=== PATIENT | female | born 1995 | race Hispanic/Latino ===

== ENCOUNTER 2019-09-28 00:29 | Inpatient (IN) | payer OTHER ==
[2019-09-28 00:58] VITALS: BMI 31.8
[2019-09-28] MEDS ORDERED: hydrALAZINE 20 MG/ML VIAL SLOW IVP PRN ×2 (01:19→17:40)
[2019-09-28] MEDS ORDERED: Ondansetron PF 4 MG/2 ML Vial IVP PRN ×2 (01:19→09:06)
[2019-09-28] MEDS ORDERED: Lidocaine 1% (PF) 30 ML VIAL SC PRN (01:19)
[2019-09-28] MEDS ORDERED: HYDROcodone/Acetaminophen 5/325 mg Tablet PO PRN ×2 (01:19)
[2019-09-28] MEDS ORDERED: Ibuprofen 800 MG TAB PO PRN (01:19)
[2019-09-28] MEDS ORDERED: Lactated Ringer's 1,000 ML IV SCH (01:30)
[2019-09-28] MEDS: Lactated Ringer's 1,000 ML IV SCH ×3 (02:00→19:06)
[2019-09-28 02:14] LABS: Mean Corpuscular HGB CONC 35.6 g/dL (32.0-36.0); Mean Corpuscular Hemoglobin 31.8 pg (27.0-31.0); Mean Corpuscular Volume 89.5 fL (78.0-98.0); Mean Platelet Volume 8.3 fL (7.4-10.4); Platelet Count 193 thou/uL (130-400); RBC Distribution Width 12.6 % (11.5-14.5); Red Blood Cell (RBC) Count 4.09 mill/uL (4.20-5.40); White Blood Cell (WBC) Count 9.3 thou/uL (4.8-10.8)
[2019-09-28] MEDS: Butorphanol Tartrate 1 MG/ML VIAL SLOW IVP PRN ×2 (02:18→04:48)
[2019-09-28 02:41] LABS: HBSAg Index 0.15 S/CO (0-0.99); Hep B Surf Ag Non-Reactive S/CO (NonReactive)
[2019-09-28 05:33] LABS: Syphilis Antibody Nonreactive (Nonreactive); Syphilis Antibody Index 0.05 S/CO (<1.00 Non-Reactive)
[2019-09-28] MEDS ORDERED: Fentanyl 4 mcg/Bup 0.1% Cadd 100 ML ONE (07:40)
--- NOTE | 2019-09-28 07:46 | PDOC.LDHP ---
Labor and Delivery H&P Chief complaint: contractions HPI: 24 yo @ 39w1d by LMP c/w CRL who presents with c/o ctx, in active labor. Antepartum course benign. Current gestational age (weeks): 39 Due date: 10/04/19 Dating criteria: last menstrual period Grav: 2 Para: 1 OB History Details: Term FAVD due after pushing 2 hours. Current complications: none Abnormal US findings: No Current medications: pre- vitamins Previous surgical history: none Allergies/Adverse Reactions: Allergies Allergy/AdvReac Type Severity Reaction Status Date / Time No Known Allergies Allergy Verified 09/28/19 00:56 Social history: none - Physical Exam Vital signs reviewed and normal: yes General: NAD Heart: RRR Lungs: nonlabored breathing Abdomen: gravid Extremeties: no edema FHT: category 1 (130s, mod kym, +accels, no decels) [place] contractions every: q4-5 min - Vaginal Exam cm dilated: 8 (cepahlic ) Effacement: 90% Station: 1+ - OB Labs Blood type: O RH: positive Antibody Screen: negative HIV: negative RPR: negative HEPSAg: negative 1 hour GCT: negative GBS: negative Urine drug screen: negative Rubella: immune - Assessment L&D Assessment: term patient in labor - Plan Plan: admit to L&D, informed consent obtained, anesthesia consult for pain management -: Plan for AROM s/p epidural
[2019-09-28] MEDS ORDERED: Lactated Ringer's 500 ML IV PRN (09:06)
[2019-09-28] MEDS ORDERED: Naloxone HCl 0.4 mg/ml Vial IVP PRN ×2 (09:06)
[2019-09-28] MEDS ORDERED: Promethazine HCl 25 MG/ML VIAL IM PRN (09:06)
[2019-09-28] MEDS ORDERED: ePHEDrine/0.9% NaCl/PF SYRINGE 50 mg/10 ml SLOW IVP PRN (09:06)
[2019-09-28] MEDS ORDERED: Acetaminophen 325 MG TAB PO PRN (09:06)
[2019-09-28] MEDS ORDERED: diphenhydrAMINE 50 MG/ML VIAL IVP PRN (09:06)
[2019-09-28] MEDS ORDERED: Fentanyl 4 mcg/Bupivacaine 0.1% Cassette 100 ML EPIDURAL SCH (09:15)
[2019-09-28] MEDS ORDERED: Communication Order-Pharmacy FS PRN (09:15)
[2019-09-28] MEDS ORDERED: Lidocaine 2% MPF 10 ML AMP (For Epidural Use) ONE (15:18)
--- NOTE | 2019-09-28 15:30 | PDOC.OPDEL ---
OB Operative/Delivery Note Delivery Dr/Surgeon: Ana Cunningham DO Pre-Delivery Diagnosis: active labor Procedure/Post Delivery Dx: spontaneous vaginal delivery Weeks gestation: 39 Anesthesia: epidural - Findings A Sex: female - 1 min: 9 - 5 min: 9 - Additional Findings/Plan Placenta delivered: spontaneous Repaired Obstetrical Laceration: other (Right labial laceration !st degree) Estimated blood loss: QBL 180 cc Compilations/Other Findings: in EVA position Normal appearing placenta. Post delivery plan: routine recovery
[2019-09-28] MEDS: NS / Oxytocin 40 units/1000ml 1,000 ML IV PRN ×2 (15:41→17:00)
[2019-09-28] MEDS ORDERED: Preparation H Ointment 28 GM TUBE PR PRN (17:40)
[2019-09-28] MEDS ORDERED: diphenhydrAMINE 25 MG CAP PO PRN (17:40)
[2019-09-28] MEDS ORDERED: NS / Oxytocin 40 units/1000ml 1,000 ML IV SCH (17:40)
[2019-09-28] MEDS ORDERED: Lanolin Ointment 7 GM TUBE TOP PRN (17:40)
[2019-09-28] MEDS ORDERED: Benzocaine-Menthol 82.5 ML CAN TOP PRN (17:40)
[2019-09-28] MEDS ORDERED: Milk Of Magnesia 30 ML UDCUP PO PRN (17:40)
[2019-09-28] MEDS ORDERED: Bisacodyl 10 MG SUPP PR PRN (17:40)
[2019-09-28] MEDS ORDERED: Methylergonovine 0.2 MG/ML VIAL IM PRN (17:40)
[2019-09-28] MEDS ORDERED: Misoprostol 200 MCG TAB VAG PRN (17:40)
[2019-09-28] MEDS: HYDROcodone/Acetaminophen 5/325 mg Tablet PO PRN (19:23)
[2019-09-28] MEDS: Docusate Calcium (SURFAK) 240 MG CAP PO SCH (21:40)
[2019-09-28] MEDS: Ibuprofen 800 MG TAB PO SCH (21:40)
[2019-09-29 05:56] LABS: #Eosinphils 0.1 thou/uL (0.0-0.7); #Lymphocytes 2.5 thou/uL (1.20-3.40); #Monocytes 0.7 thou/uL (0.11-0.59); #Neutrophils 7.4 thou/uL (1.40-6.50); %Basophils 0.2 % (0.0-1.0); %Eosinophils 1.3 % (0.0-10.0); %Lymphocytes 23.7 % (21.0-51.0); %Monocytes 6.1 % (0.0-10.0); %Neutrophils 68.7 % (42.0-75.0); Hemoglobin 11.6 g/dL (12.0-16.0); Mean Corpuscular HGB CONC 33.7 g/dL (32.0-36.0); Mean Corpuscular Hemoglobin 30.5 pg (27.0-31.0); Mean Corpuscular Volume 90.4 fL (78.0-98.0); Mean Platelet Volume 8.2 fL (7.4-10.4); Platelet Count 184 thou/uL (130-400); RBC Distribution Width 12.6 % (11.5-14.5); Red Blood Cell (RBC) Count 3.81 mill/uL (4.20-5.40); White Blood Cell (WBC) Count 10.7 thou/uL (4.8-10.8)
[2019-09-29] MEDS: Ibuprofen 800 MG TAB PO SCH ×3 (06:07→22:02)
--- NOTE | 2019-09-29 07:28 | PDOC.PP ---
Post Progress Note Post Day #: 1 Subjective: No concerns. breast feeding. Minimal pain and lochia. PO intake tolerated: yes Flatus: yes Ambulation: yes Vital Signs (12 hours) Temp Pulse Resp BP Pulse Ox 09/29/19 04:00 98 F 60 14 98/57 L 98 09/29/19 00:00 97.9 F 60 16 113/57 L 98 Weight Weight 191 lb - Physical Examination General: NAD Cardiovascular: RRR Respiratory: non-labored breathing Abdominal: no distention, appropriately TTP Extremities: negative homans (B) Neurological: no gross focal deficits Psychiatric: A&Ox3, normal affect Result Diagrams: 09/29/19 05:08 Additional Labs: Post Labs Blood Type O POSITIVE 09/28/19 02:19 Hep Bs Antigen Non-Reactive S/CO (NonReactive) 09/28/19 01:31 (1) Vaginal delivery Code(s): O80 - ENCOUNTER FOR FULL-TERM UNCOMPLICATED DELIVERY Status: Acute - Assessment/Plan PPD2 VSSAF Plan for d/c @ 24 hrs with
[2019-09-29] MEDS: Ferrous Sulfate 325 MG TAB PO SCH ×2 (08:38→17:42)
[2019-09-29] MEDS: Prenatal Vitamin 1 TAB PO SCH (09:52)
[2019-09-29] MEDS: Docusate Calcium (SURFAK) 240 MG CAP PO SCH ×2 (09:52→22:02)
[2019-09-29] MEDS: HYDROcodone/Acetaminophen 5/325 mg Tablet PO PRN (17:46)
[2019-09-30] MEDS: HYDROcodone/Acetaminophen 5/325 mg Tablet PO PRN (03:58)
[2019-09-30] MEDS: Ibuprofen 800 MG TAB PO SCH ×2 (05:37→13:23)
--- NOTE | 2019-09-30 06:03 | PDOC.PP ---
Post Progress Note Post Day #: 2 Subjective: NAEO. Patient doing well. No complaints, ready for home. PO intake tolerated: yes Flatus: yes Ambulation: yes Vital Signs (12 hours) Temp Pulse Resp BP Pulse Ox 09/30/19 04:13 97.7 F 59 L 18 104/55 L 98 09/29/19 23:44 97.8 F 63 18 109/67 97 09/29/19 20:00 95 09/29/19 19:13 98.4 F 72 16 108/58 L 95 Weight Weight 86.636 kg - Physical Examination General: NAD Cardiovascular: no m/r/g, RRR Respiratory: clear to auscultation bilaterally, non-labored breathing Abdominal: no distention Extremities: negative homans (B) Neurological: no gross focal deficits Psychiatric: A&Ox3, normal affect Result Diagrams: 09/29/19 05:08 Additional Labs: Post Labs Blood Type O POSITIVE 09/28/19 02:19 Hep Bs Antigen Non-Reactive S/CO (NonReactive) 09/28/19 01:31 - Assessment/Plan 24 yo s/p term with right labial tear 1. S/P term , PPD2 - course uncomplicated -AVSS Dispo: Home today
[2019-09-30] MEDS: Ferrous Sulfate 325 MG TAB PO SCH ×2 (08:24→17:55)
[2019-09-30 09:23] VITALS: BP 110/65; TEMP 97.8
[2019-09-30] MEDS: Docusate Calcium (SURFAK) 240 MG CAP PO SCH (09:24)
[2019-09-30] MEDS: Prenatal Vitamin 1 TAB PO SCH (09:24)
== END 2019-09-30 18:32 | disposition home or self-care (01) | DRG 807 ==
LOC: L&D/OP 00:29 → L&D 01:17 → 3SE 18:15
PROVIDERS: ADMIT Obstetrics & Gynecology; ATTEND Obstetrics & Gynecology
PROC: 10E0XZZ Delivery of Products of Conception, External Approach (ICD-10-PCS; principal; 2019-09-28)
PROC: 0HQ9XZZ Repair Perineum Skin, External Approach (ICD-10-PCS; 2019-09-28)
DX: O70.0 First degree perineal laceration during delivery (principal); Z37.0 Single live birth; Z3A.39 39 weeks gestation of pregnancy
CPT/HCPCS: 36415; 36416; 51702; 85025; 85027; 86780; 86850; 86900; 86901; 87340; 99285; J0595; J2001

== ENCOUNTER 2023-01-26 09:48 | Emergency (ER) | payer OTHER ==
[2023-01-26 11:55] LABS: Pregnancy Test - Urine (BHCG) Negative (Negative); Pregu Control Background? CLEAR/WHITE (CLR/WHITE); Pregu Control Bar Appear? YES (CONTROL BAR); Specific Gravity 1.021 (1.002-1.036)
[2023-01-26] MEDS ORDERED: Ibuprofen 200 MG TAB ONE (11:57)
== END 2023-01-26 12:50 | disposition home or self-care (01) ==
LOC: ERS 09:48
DX: M54.9 Dorsalgia, unspecified (principal); M54.2 Cervicalgia; V48.5XXA Car driver injured in noncollision transport accident in traffic accident, initial encounter
CPT/HCPCS: 72125; 72128; 72131; 81025